=== PATIENT | male | born 1985 | race Caucasian/White ===

== ENCOUNTER → 2017-06-17 | Outpatient (CLI) | payer BC ==
[2017-06-17 13:34] LABS: DAYS OF ABSTINENCE 5; METHOD OF COLLECTION MASTURBATION; SEMEN COLOR GRAY OR GRAY-WHITE (GRY/GRYWHTE); SEMEN TIME OF COLLECTION 1210; TYPE OF SPECIMEN CONTAINER STERILE CUP
[2017-06-17 14:54] LABS: SPERM VIABILITY STAIN NOT INDICATED % (>58%)
== END | disposition home or self-care (01) ==
LOC: C.LAB 12:26
PROVIDERS: ATTEND Specialist
DX: Z31.41 Encounter for fertility testing (principal)